=== PATIENT | male | born 1955 | race Caucasian/White ===

== ENCOUNTER → 2023-03-24 | Day surgery (SDC) | payer OTHER ==
--- NOTE | 2023-03-24 12:28 | RAD REPORT ---
EXAM DESCRIPTION: US - Guided FNA Non Breast - 03/24/2023 11:26 am CLINICAL HISTORY: R59.0 COMPARISON: Soft Tissue Neck W/Contr dated 03/11/2023 FINDINGS: Preoperative diagnosis: Right neck mass. Post operative diagnosis: Same. Conscious Sedation: None Fluoroscopy time: None Contrast used: None Estimated blood loss: 0 mL Specimens:4 x18 gauge core specimens. The right neck was prepped and draped in the usual sterile fashion. Initial real-time sonographic carie luation reveals a heterogeneous hypoechoic ovoid masslike structure with internal punctate echogenici ties suggestive of calcifications was seen in the right submandibular triangle, correlating to the CT abnormality. 10 mL of 1% lidocaine was infiltrated into the subcutaneous tissues for local anesthesi a. Under direct ultrasound guidance, using a 18-gauge, 5.1 cm long, 2 cm throw core biopsy gun, 4 cor e specimens were obtained of this lesion and sent to pathology for evaluation. Patient experienced no complications. Incidents of pain were experienced during the procedure, with no significant residual pain following conclusion of the procedure. The area was dressed appropriately. IMPRESSION: Successful ultrasound-guided right submandibular triangle mass core biopsy.
== END ==
LOC: FNA 10:21
PROVIDERS: ATTEND Otolaryngology
DX: R59.0 Localized enlarged lymph nodes (principal)
CPT/HCPCS: 88305

== ENCOUNTER 2024-05-27 09:39 | Emergency (ER) | payer OTHER ==
[2024-05-27 10:42] LABS: SARS-CoV-2 Antigen CONTROL BLUE LINE VIS/BG OK
[2024-05-27 10:43] LABS: SARS-CoV-2 Antigen Rapid Res Positive (Negative)
--- NOTE | 2024-05-27 11:03 | EDPHYS ---
Physician Documentation [facility] Name: Min Hernandez Jr Age: 68 yrs Sex: Male : 1955 Arrival Date: 05/27/2024 Time: 09:39 Bed 7 Private MD: ED Physician Geoff Whitt HPI: 05/27 10:05 This 68 yrs old Male presents to ER via Ambulatory with complaints of Sore Throat, Flu cp Symptoms. 10:05 The patient presents with sore throat. cp 10:05 Onset: The symptoms/episode began/occurred 2 day(s) ago. cp 10:05 Severity of symptoms: in the emergency department the symptoms are unchanged, despite cp home interventions. Associated signs and symptoms: Pertinent positives: cough, diarrhea, Sore throat Pertinent negatives fever. Historical: - Allergies: 09:58 adhesive tape; ll1 - PMHx: 09:58 Chronic obstructive lung disease; COPD; Hypertensive disorder; ll1 - PSHx: 09:58 carotids cleared out; ll1 - Immunization history:: Adult Immunizations up to date. - Infectious Disease History:: Denies. - Social history:: Smoking status: Reported history of juuling and/or vaping. Patient/guardian denies using tobacco, the patient reports quitting approximately 15 years ago. ROS: 10:10 Constitutional: Negative for fever, poor PO intake, cp 10:10 Eyes: Negative for injury, pain, redness, and discharge, cp 10:10 ENT: Positive for sore throat, Negative for drainage from ear(s), ear pain, difficulty swallowing, difficulty handling secretions, 10:10 Respiratory: Positive for cough, Negative for shortness of breath, wheezing, 10:10 Abdomen/GI: Positive for diarrhea, Negative for abdominal pain, vomiting, 10:10 Neuro: Positive for headache, Negative for altered mental status, weakness, 10:10 All other systems are negative, Exam: 10:15 Constitutional: The patient appears in no acute distress, alert, awake, non-toxic, well cp developed, well nourished, 10:15 Head/Face: Normocephalic, atraumatic. cp 10:15 Eyes: Periorbital structures: appear normal, Conjunctiva: normal, no exudate, no injection, Sclera: no appreciated abnormality, Lids and lashes: appear normal, bilaterally, 10:15 ENT: External ear(s): are unremarkable, Ear canal(s): are normal, clear, TM's: dullness, bilaterally, Nose: is normal, Mouth: Lips: moist, Oral mucosa: moist, Posterior pharynx: Airway: no evidence of obstruction, patent, Tonsils: no enlargement, no exudate, erythema, that is mild, exudate, is not appreciated, 10:15 Neck: Lymph nodes: no appreciated lymphadenopathy, 10:15 Chest/axilla: Inspection: normal, Palpation: is normal, no crepitus, no tenderness, 10:15 Cardiovascular: Rate: normal, Rhythm: regular, 10:15 Respiratory: the patient does not display signs of respiratory distress, Respirations: normal, no use of accessory muscles, no retractions, labored breathing, is not present, Breath sounds: decreased breath sounds, that are mild, throughout, wheezing: is not appreciated, 10:15 Abdomen/GI: Inspection: abdomen appears normal, Palpation: abdomen is soft and non-tender, in all quadrants, Vital Signs: 09:57 BP 145 / 86; Pulse 81; Resp 20; Temp 98.2; Pulse Ox 100% on R/A; Weight 92.53 kg; ll1 Height 5 ft. 9 in. ; Pain 8/10; 11:15 BP 138 / 78; Pulse 78; Resp 18; Temp 98; Pulse Ox 99% on R/A; ph 09:57 Body Mass Index 30.13 (92.53 kg, 175.26 cm) ll1 09:57 Pain Scale: Adult ll1 MDM: 09:50 Patient medically screened. 11:02 Data reviewed: vital signs, nurses notes, lab test result(s), and as a result, I will cp discharge patient. 11:02 Differential diagnosis: group A strep tonsillitis, pharyngitis, tonsillitis, upper cp respiratory infection, uvulitis. Counseling: I had a detailed discussion with the patient and/or guardian regarding the historical points, exam findings, and any diagnostic results supporting the discharge/admit diagnosis, lab results, to return to the emergency department if symptoms worsen or persist or if there are any questions or concerns that arise at home. 05/27 10:01 Order name: Strep 05/27 10:46 Interpretation: Reviewed. 05/27 10:01 Order name: Influenza Screen (a \T\ B) cp 05/27 10:01 Order name: SARS RAPID; Complete Time: 10:46 cp 05/27 10:46 Interpretation: Reviewed. cp 05/27 10:47 Order name: Throat Culture EDAL Administered Medications: No medications were administered Disposition Summary: 05/27/24 11:03 Discharge Ordered Notes: Location: Home cp Problem: new cp Symptoms: are unchanged cp Condition: Stable cp Diagnosis - SARS-associated coronavirus as the cause of diseases classified elsewhere cp Followup: cp - With: Private Physician - When: 2 - 3 days - Reason: Worsening of condition Discharge Instructions: - Discharge Summary Sheet cp - Aspirin and Your Heart cp - COVID-19 cp - How to Protect Yourself and Others - [facility] (11/14/2021) cp - 10 Things You Can Do to Manage Your COVID-19 Symptoms at Home - [facility] (04/04/2021) cp - COVID-19: Quarantine and Isolation - [facility] (12/17/2021) cp - COVID-19: What to Do If You Are Sick - [facility] (12/09/2021) cp Forms: - Medication Reconciliation Form cp - Antibiotic Education cp - Prescription Opioid Use cp - Patient Portal Instructions cp - Leadership Thank You Letter cp Prescriptions: - Paxlovid 300 mg (150 mg x 2)-100 mg Oral Tablet, Dose Pack - take 1 dose pack ORAL route as directed on dose pack take TWO 150 mg tablets of cp nirmatrelvir with ONE 100 mg tablet of ritonavir twice daily for 5 days; 30 tablet; Refills: 0, Product Selection Permitted - Bromfed DM 2-30-10 mg/5 mL Oral syrup - administer 10 milliliter ORAL route 3-4 times daily As needed as needed for cp cold symptoms; 240 milliliter; Refills: 0, Product Selection Permitted Addendum: 06/03/2024 15:38 Co-signature as Attending Physician, Geoff Whitt MD I agree with the assessment and c dangelo plan of care. Signatures: Dispatcher [employer] Geoff Bhardwaj MD MD cha Hall, Patricia, RN RN ph Geoff Ortega, PA PA Sheyla Kolb RN RN ll1
--- NOTE | 2024-05-27 11:03 | ER ---
Nurse's Notes [facility] Name: Min Hernandez Jr Age: 68 yrs Sex: Male : 1955 Arrival Date: 05/27/2024 Time: 09:39 Bed 7 Private MD: Diagnosis: SARS-associated coronavirus as the cause of diseases classified elsewhere Presentation: 05/27 09:57 Chief complaint: Patient states: Sore throat, fatigue, FLOREZ, cough/congestion, diarrhea ll1 started . No fever. Family members he lives with have covid. Coronavirus screen: Client denies travel out of the [place] in the last 14 days. congestion, cough unrelated to allergies, fatigue, headache, sore throat, Client presents with at least one sign or symptom that may indicate coronavirus-19. Standard/surgical mask placed on the client. Ebola Screen: Patient denies travel to an Ebola-affected area in the 21 days before illness onset. Initial Sepsis Screen: Does the patient meet any 2 criteria? No. Patient's initial sepsis screen is negative. Does the patient have a suspected source of infection? No. Patient's initial sepsis screen is negative. Risk Assessment: Do you want to hurt yourself or someone else? Patient reports no desire to harm self or others. Onset of symptoms was May 25, 2024. 09:57 Method Of Arrival: Ambulatory ll1 09:57 Acuity: MONI 3 ll1 Triage Assessment: 09:59 General: Appears uncomfortable, Behavior is calm, cooperative, appropriate for age. ll1 Pain: Complains of pain in head Pain currently is 8 out of 10 on a pain scale. Quality of pain is described as aching. EENT: Reports nasal congestion pain when swallowing. Neuro: Reports headache weakness. Respiratory: Reports cough that is pain with cough. Historical: - Allergies: 09:58 adhesive tape; ll1 - PMHx: 09:58 Chronic obstructive lung disease; COPD; Hypertensive disorder; ll1 - PSHx: 09:58 carotids cleared out; ll1 - Immunization history:: Adult Immunizations up to date. - Infectious Disease History:: Denies. - Social history:: Smoking status: Reported history of juuling and/or vaping. Patient/guardian denies using tobacco, the patient reports quitting approximately 15 years ago. Screenin:21 [facility] ED Fall Risk Assessment (Adult) History of falling in the last 3 months, ph including since admission No falls in past 3 months (0 pts) Confusion or Disorientation No (0 pts) Intoxicated or Sedated No (0 pts) Impaired Gait No (0 pts) Mobility Assist Device Used No (0 pt) Altered Elimination No (0 pt) Score/Fall Risk Level 0 - 2 = Low Risk Oriented to surroundings, Maintained a safe environment, Hourly rounding (assess needs \T\ fall precautionary measures) done. Abuse screen: Denies threats or abuse. Denies injuries from another. Nutritional screening: No deficits noted. Tuberculosis screening: No symptoms or risk factors identified. Assessment: 11:04 General: Appears in no apparent distress. Behavior is calm, cooperative. General: ph Reports fatigue for 12-24 hours. Pain: Complains of pain in headache. Neuro: Level of Consciousness is awake, alert, obeys commands, Oriented to person, place, time, situation. Cardiovascular: Capillary refill < 3 seconds in bilateral fingers. Respiratory: Reports cough that is Airway is patent Respiratory effort is even, unlabored, Respiratory pattern is regular, symmetrical, Breath sounds are clear bilaterally. GI: Reports diarrhea. : No signs and/or symptoms were reported regarding the genitourinary system. EENT: Throat is reddened Reports nasal congestion pain when swallowing. Derm: Skin is pink, warm \T\ dry. Vital Signs: 09:57 BP 145 / 86; Pulse 81; Resp 20; Temp 98.2; Pulse Ox 100% on R/A; Weight 92.53 kg; ll1 Height 5 ft. 9 in. ; Pain 8/10; 11:15 BP 138 / 78; Pulse 78; Resp 18; Temp 98; Pulse Ox 99% on R/A; ph 09:57 Body Mass Index 30.13 (92.53 kg, 175.26 cm) ll1 09:57 Pain Scale: Adult ll1 ED Course: 09:46 Patient arrived in ED. sj2 09:50 Geoff Ortega PA is PHCP. cp 09:50 Geoff Whitt MD is Attending Physician. cp 09:58 Triage completed. ll1 09:59 Arm band placed on Patient placed in an exam room, on a stretcher. ll1 11:03 Eneida Jason RN is Primary Nurse. ph 11:05 Patient has correct armband on for positive identification. Bed in low position. Call ph light in reach. Side rails up X 1. Pulse ox on. NIBP on. 11:05 No provider procedures requiring assistance completed. Patient did not have IV access ph during this emergency room visit. Administered Medications: No medications were administered Medication: 10:21 VIS not applicable for this client. ph Outcome: 11:03 Discharge ordered by . cp 11:32 Patient left the ED. ph 11:32 Discharged to home ambulatory, ph 11:32 Condition: good 11:32 Discharge instructions given to patient, Instructed on discharge instructions, follow up and referral plans. medication usage, Demonstrated understanding of instructions, follow-up care, medications, Prescriptions given X 2, Signatures: Eneida Jason, RN RN Geoff Borges PA PA cp Lewis, Lynsay, RN RN ll1 Olinda Burkett 2
[2024-05-27 11:45] VITALS: BP 145/86; TEMP 98.2; O2SAT 100
== END 2024-05-27 11:32 | disposition home or self-care (01) ==
LOC: ER 09:39
DX: U07.1 COVID-19 (principal); J44.9 Chronic obstructive pulmonary disease, unspecified; I10 Essential (primary) hypertension
CPT/HCPCS: 36415; 87070; 87081; 87804; 87811; 99283